=== PATIENT | male | born 1950 | race Caucasian/White ===

== ENCOUNTER 2016-07-29 07:22 | Observation (INO) | payer MEDICAID, OTHER ==
--- NOTE | 2016-07-28 21:10 | PREOPHP ---
DATE OF ADMISSION: 07/29/2016 HISTORY: A 65-year-old male patient seen in the office for evaluation of nasal obstruction to breat emmanuel in 02/2016. There had been prior history of nasal fracture and nasal corrective surgery attemraymond moreno, 12/12/2015. Patient has persistent nasal obstruction to breathing and is now admitted to the [facility] for nasal surgery. ALLERGIES: NONE. MEDICAL CONDITIONS: None. MEDICATIONS: 1. Ibuprofen. 2. Atorvastatin. PRIOR SURGERIES: Herniorrhaphy and right shoulder surgery. CLOTTING DISORDERS: None. HABITS: Alcohol: Social. Tobacco: None. Recreational drugs: None. PHYSICAL EXAMINATION: GENERAL: A well-developed, well-nourished patient, in no acute distress. HEENT: Head normocephalic. No masses or deformities. Ears and tympanic membranes are normal. Nos e: Evidence of old nasal fracture with obstructive septal deviation and turbinate hypertrophy. Rachel pharynx is clear. NECK: No masses or adenopathy. CHEST: Clear to P and A. HEART: Regular sinus rhythm without murmur. ABDOMEN: Soft, bowel sounds normal, no masses or megaly. EXTREMITIES: Full range of motion without deformity. NEUROLOGIC: Physiologic. RECTAL: Not done. IMPRESSION: Old nasal fracture with septal deviation and turbinate hypertrophy. RECOMMENDATIONS: Admit for surgery. Dictated By: TEMITOPE TORRES MD, MM/JOSE Conf#: [id number] DID#: [id number]
[~2016-07-29] VITALS: Ht 167.6 cm; Wt 79.6 kg
[2016-07-29] VITALS (47 sets, daily range): BP systolic 87–151; BP diastolic 49–88; PULSE 62–86; RESP 11–33; Ht 167.6 cm; Wt 79.6 kg
[2016-07-29] MEDS ORDERED: COCAINE 4% 4 ML TOP ONE (11:58)
[2016-07-29] MEDS ORDERED: LIDOCAINE 1%/EPI (MDV) 20 ML INJ ONE (11:58)
[2016-07-29] MEDS ORDERED: PROPOFOL 20 ML ONE (12:03)
[2016-07-29] MEDS ORDERED: FENTAnyl 50 MCG/ML VIAL ONE (12:03)
[2016-07-29] MEDS ORDERED: ROCURONIUM 50 MG INJ ONE (12:03)
[2016-07-29] MEDS ORDERED: LIDOCAINE 2% (SDV) 5 ML INJ ONE (12:03)
[2016-07-29] MEDS ORDERED: SUCCINYLCHOLINE CHLORIDE 100 MG/5 ML SYG IV ONE (12:03)
[2016-07-29] MEDS ORDERED: PHENYLephrine (100 MCG/ML) 5ML SYG ONE (12:22)
[2016-07-29] MEDS ORDERED: BACITRACIN/POLYMYXIN 28.35 GM OINT TOP ONE (12:35)
[2016-07-29] MEDS ORDERED: FENTAnyl 50 MCG/ML VIAL IV PRN (13:00)
[2016-07-29] MEDS ORDERED: HYDROmorphONE (0.2 MG/ML) 10ML SYG IV PRN ×2 (13:00)
[2016-07-29] MEDS ORDERED: DIPHENHYDRAMINE 50 MG INJ IV PRN (13:00)
[2016-07-29] MEDS ORDERED: MEPERIDINE 25 MG INJ IV PRN (13:00)
[2016-07-29] MEDS ORDERED: ALBUTEROL 0.083% (NEB) 2.5 MG/3 ML AMP HHN ONE (13:00)
[2016-07-29] MEDS ORDERED: METOCLOPRAMIDE 10 MG INJ IV PRN (13:00)
[2016-07-29] MEDS ORDERED: ONDANSETRON 4 MG INJ IV PRN ×2 (13:00→18:30)
[2016-07-29] MEDS ORDERED: HYDROCODONE/APAP (7.5/325) TAB PO PRN (13:20)
[2016-07-29] MEDS ORDERED: ACETAMINOPHEN 325 MG TAB PO PRN (18:30)
[2016-07-29] MEDS ORDERED: BISACODYL (EC) 5 MG TAB PO PRN (18:30)
[2016-07-29] MEDS ORDERED: MAGNESIUM HYDROXIDE 30ML CUP PO PRN (18:30)
[2016-07-29] MEDS ORDERED: hydrALAzine 20 MG INJ IV PRN (18:30)
[2016-07-29] MEDS ORDERED: HYDROCODONE/APAP (5/325) TAB PO PRN (18:30)
[2016-07-29] MEDS ORDERED: LORAZEPAM 2 MG INJ IV PRN (18:30)
[2016-07-29] MEDS ORDERED: morphine 2 MG INJ IV PRN (18:30)
[2016-07-29] MEDS ORDERED: NACL 0.9% 3 ML SYG IV SCH (18:30)
--- NOTE | 2016-07-29 19:48 | HP ---
DATE OF ADMISSION: 07/29/2016 TIME OF EVALUATION: 1814 REASON FOR ADMISSION: Chest pain status post elective septoplasty. CONSULTATIONS: Henrry Melgoza MD, Cardiology. HISTORY OF PRESENT ILLNESS: This is a 65-year-old, male patient with past medical history of dyslipidemia, who takes atorvastatin, who was electively brought to [facility] for a septoplasty for a nasal obstruction that has been going on since last year. There was a nasal corrective surgery attempted on 12/12/2015 with details unclear. As per the patient, the nasal fracture happened after an injury in 2015. Eventually, the patient was brought here to [facility] electively by Dr. Alberto and the patient underwent a successful septoplasty. Status post surgery , the patient started complaining of chest pain that was of sudden in onset. The patient rated the chest pain as 4/10. The patient had no associated symptoms including any diaphoresis, nausea or vomiting. The patient denied any family history of heart disease. The patient has a family history of hypertension. The patient verbalized that the patient did not have any chest pain prior to surgery. The patient had a 12-lead EKG done that showed a normal sinus rhythm. The patient's latest blood pressure is 145/78. PAST MEDICAL HISTORY: Dyslipidemia. PAST SURGICAL HISTORY: Right inguinal herniorrhaphy, left shoulder surgery, current nasal septoplasty, and lithotripsy. HOME MEDICATIONS: Atorvastatin, dose unknown. ALLERGIES: NO KNOWN DRUG ALLERGIES. SOCIAL HISTORY: The patient lives at home with his family; currently retired. He denies any use of tobacco, alcohol or illicit drugs. FAMILY HISTORY: Positive for hypertension. REVIEW OF SYSTEMS: Negative, other than what is mentioned in the history of present illness. PHYSICAL EXAMINATION: VITAL SIGNS: Temperature 98.0, pulse rate 76, respiratory rate 15, blood pressure 144/78, oxygen saturation 99% on room air. GENERAL: This is a well-built, well-nourished, male lying in bed, in no apparent distress. HEENT: Head normocephalic and atraumatic. Eyes, anicteric sclerae. Conjunctivae clear. ENT, the patient has a nasal packing. NECK: Supple. No JVD noticed. RESPIRATORY: Bilaterally clear to auscultation. No use of accessory muscles of respiration. CARDIAC: Regular rate and rhythm. S1, S2 heard. ABDOMEN: Soft, nontender, nondistended. Bowel sounds positive in all 4 quadrants. GENITOURINARY: Deferred. EXTREMITIES: No cyanosis, no clubbing, no edema. Peripheral pulses palpable. NEUROLOGIC: Awake, alert and oriented. Cranial nerves are grossly intact. LABORATORY AND DIAGNOSTIC DATA: Troponin less than 0.012. The rest of the labs are not available. IMPRESSION: This is a 65-year-old male patient who came to the [facility] for elective surgery for a nasal fracture, who underwent a successful septoplasty, who started having chest pain post operatively. He will be admitted here in the hospital for further treatment and evaluation ASSESSMENT AND PLAN: 1. Chest pain. To rule out acute coronary syndrome. Serial troponins will be obtained. A 2D echocardiogram will be obtained. The patient will not be started on any aspirin because of the current surgery. Cardiology is already following the patient. 2. Nasal fracture with septal deviation and turbinate hypertrophy. Status post successful septoplasty. Management as per ENT surgeon. 3. Dyslipidemia. A fasting lipid panel will be obtained. The patient will be started on Lipitor. Plan. The patient will be admitted to inpatient telemetry floor under observation status. The patient will be started on deep venous thrombosis prophylaxis with bilateral sequential compression devices. He will be started on gastrointestinal prophylaxis. The patient will be started on a clear liquid diet, and the patient's diet will be advanced as tolerated to a low cholesterol diet. The rest of the patient's management will be based on the clinical course, the results of diagnostic studies and inputs from consultants. Based on the patient's clinical presentation, he most probably requires at least 1-midnight's stay for further management and evaluation of his clinical presentation. The case and management of this patient were fully discussed with Dr. Yepez. DANIELITO YEPEZ MD, AM/JOSE Conf#: [id number] DID#: [id number] ANGELICA
[2016-07-29 20:40] LABS: THYROID STIMULATING HORMONE 1.93 MIU/L (0.465-4.680)
[2016-07-29 20:47] LABS: CHOL/HDL RATIO 11.4 RATIO
[2016-07-29] MEDS ORDERED: ATORVASTATIN 40 MG TAB PO SCH (21:00)
[2016-07-29] MEDS: FAMOTIDINE 20 MG TAB PO SCH (21:09)
--- NOTE | 2016-07-29 21:11 | CONS ---
DATE OF ADMISSION: 07/29/2016 DATE OF CONSULTATION: 07/29/2016 CARDIOLOGY CONSULTATION REASON FOR CONSULTATION: Chest pain. REQUESTING PHYSICIAN: Ignacio De La Cruz MD HISTORY OF PRESENT ILLNESS: Mr. Christie is a 65-year-old male with a history of dyslipidemia who delgadillo d a prior nasal fracture and was having nasal obstruction during breathing and therefore presented t o an outside physician and was scheduled for and brought here for nasal surgery due to septal deviat ion. The patient underwent procedure today and underwent surgery by Dr. De La Cruz, ENT today. Postope ratively, the patient admitted to the PACU and complaints of substernal chest pain, left-sided, desc ribed as a stabbing to a throbbing component with radiation towards the left arm. The patient denie s prior chest pain, myocardial infarction or the cardiac pathology. The patient underwent a 12-lead EKG revealing normal sinus rhythm, rate of 65, normal axis, normal intervals with inferior T-wave f lattening. For this reason I am asked to see this patient in consultation. At this time, the patie nt denies ongoing chest pain, but states he has had recurrent chest pain since the initial episode. PAST MEDICAL HISTORY: As above in HPI. MEDICATIONS PRIOR TO ADMIT: Unknown cholesterol medication. MEDICATIONS CURRENTLY IN THE HOSPITAL: 1. Dilaudid p.r.n. 2. Fentanyl p.r.n. 3. Demerol p.r.n. 4. Benadryl p.r.n. ALLERGIES: NO KNOWN DRUG ALLERGIES. SOCIAL HISTORY: No tobacco, ETOH or illicit drug use. FAMILY HISTORY: No history of sudden cardiac or early CAD. REVIEW OF SYSTEMS: As above in HPI. CONSTITUTIONAL: No fevers, chills. PULMONARY: No current shortness of breath. CARDIOVASCULAR: Intermittent chest pain. GASTROINTESTINAL: No vomiting. GENITOURINARY: No hematuria. MUSCULOSKELETAL: Degenerative joint disease, primarily involving knees. PSYCHIATRIC: No documented psych history. NEUROLOGIC: No documented history of CVA. PHYSICAL EXAMINATION: VITAL SIGNS: Temperature 98, blood pressure most recently 145/78, pulse 76, respiratory rate 15, sa tting 99%. GENERAL: The patient is alert, awake, complaining of intermittent chest pain. NECK: JVP approximately 8 cm water. CHEST: Fair air movement throughout. HEART: Regular rate and rhythm. Normal S1 and S2, I/ systolic murmur, nondisplaced PMI. ABDOMEN: Positive bowel sounds, soft. EXTREMITIES: No edema, 1+ pulses, bilateral posterior tibial. Nose covered by a dressing. LABORATORY DATA: From today, troponin negative x1. IMAGING STUDIES: No further imaging studies for my review at this time. IMPRESSION: 1. Chest pain, assess for acute coronary syndrome. 2. Abnormal electrocardiogram with inferior T-wave flattening. Assess for acute coronary syndrome. 3. Hypertension, borderline. 4. History of dyslipidemia. 5. Postoperative day #0 status post nasal surgery for deviated septum. RECOMMENDATIONS: 1. At this time, would admit the patient to telemetry monitoring to follow rhythm and rate control closely. 2. Would give the patient sublingual nitroglycerin for recurrent episodes of chest pain. We will i nitiate the patient on low dose beta michelle. 3. Check a 2D echo to further assess the patient's ejection fraction, wall motion and any major keron ve abnormalities. 4. Check serial EKGs to assess for any significant ongoing changes, an EKG in the morning, EKG for any complaints of chest pain or change in rhythm. 5. Check a fasting lipid panel for general risk stratification and adjust the patient's lipid-lower ing medication as necessary. 6. Complete the patient's rule out for myocardial infarction. Thank you for allowing me to take part in the care of this patient. I will continue to follow along very closely with you with further recommendations to be made as the patient progresses through his inpatient hospital clinical course. Dictated By: ZENAIDA RIDLEY/JOSE Conf#: [id number] DID#: [id number] CC: KECIA ANGLIN MD; IGNACIO DE LA CRUZ MD;*End*
[2016-07-30] VITALS (9 sets, daily range): BP systolic 94–144; BP diastolic 53–66; PULSE 75–82; RESP 18–20
[2016-07-30 06:50] LABS: ADD SCAN DIFF NO
[2016-07-30 07:02] LABS: BASOPHIL # 0.1 10^3/ul (0.0-0.1); BASOPHILS % 0.6 % (0.0-2.0); EOSINOPHILS # 0.3 10^3/ul (0.0-0.5); HEMATOCRIT 39.8 % (42.0-52.0); HEMOGLOBIN 13.4 g/dl (14.0-18.0); LYMPHOCYTES # 1.9 10^3/ul (0.8-2.9); LYMPHOCYTES % 17.4 % (15.0-51.0); MEAN CORPUSCULAR HEMOGLOBIN 30.7 pg (29.0-33.0); MEAN CORPUSCULAR HGB CONC 33.7 g/dl (32.0-37.0); MEAN CORPUSCULAR VOLUME 91.3 fl (82.0-101.0); MEAN PLATELET VOLUME 10.9 fl (7.4-10.4); MONOCYTE # 0.9 10^3/ul (0.3-0.9); MONOCYTES % 7.9 % (0.0-11.0); NEUTROPHIL # 7.6 10^3/ul (1.6-7.5); NEUTROPHILS % 70.5 % (39.0-77.0); PLATELET COUNT 209 10^3/UL (140-415); RED BLOOD COUNT 4.36 10^6/ul (4.70-6.10); RED CELL DISTRIBUTION WIDTH 13.2 % (11.5-14.5); WHITE BLOOD COUNT 10.8 10^3/ul (4.8-10.8)
[2016-07-30 07:26] LABS: ALBUMIN 3.6 g/dl (3.3-4.9); POTASSIUM 4.2 mmol/L (3.5-5.1)
[2016-07-30 07:28] LABS: CREATININE 0.91 mg/dl (0.61-1.24)
[2016-07-30 07:29] LABS: BILIRUBIN,INDIRECT 0.8 mg/dl (0-1.1); BILIRUBIN,TOTAL 0.8 mg/dl (0.2-1.3); TOTAL PROTEIN 6.7 g/dl (6.1-8.1)
[2016-07-30 07:30] LABS: CALCIUM 8.7 mg/dl (8.4-10.2)
[2016-07-30 07:36] LABS: ALBUMIN/GLOBULIN RATIO 1.16
[2016-07-30 07:57] LABS: MAGNESIUM 1.8 mg/dl (1.7-2.5); PHOSPHORUS 3.8 mg/dl (2.5-4.9)
--- NOTE | 2016-07-30 08:00 | CONS ---
Date/Time of Note Date/Time of Note DATE: 07/30/16 TIME: 07:44 Consultation Date/Type/Reason Admit Date/Time July 29, 2016 at 18:05 Initial Consult Date 06/30/16 Type of Consultation: Anesthesiology Reason for Consultation Follow up 24 HR Interval Summary Free Text/Dictation Pt seen and examined at bedside is POD#1 s/p nasal fracture repair under GETA. The pt experienced some chest pain with radiation during his PACU stay and was admitted to r/o ACS. Cardiology on board at this time. He currently denies any CP/SOB and states he feels well. Will f/u with patient. Constitutional: improved, no complaints Exam/Review of Systems Vital Signs Vitals Vital Signs Date Time Temp Pulse Resp B/P Pulse Ox O2 Delivery O2 Flow Rate FiO2 07/30/16 07:37 98.0 75 18 99/59 98 07/29/16 16:47 Room Air Intake and Output 07/29/16 07/29/16 07/30/16 14:59 22:59 06:59 Intake Total 60 ml Balance 60 ml Results Result Diagram: 07/30/16 0542 07/30/16 0542 Results 24 hrs Laboratory Tests Test 07/29/16 14:02 07/29/16 19:35 07/30/16 00:38 07/30/16 05:42 Troponin I < 0.012 < 0.012 < 0.012 Hemoglobin A1c 5.7 Triglycerides Level 646 H Cholesterol Level 366 H LDL Cholesterol, Calculated 205 HDL Cholesterol 32 Cholesterol/HDL Ratio 11.4 Thyroid Stimulating Hormone (TSH) 1.930 Free Thyroxine 0.79 White Blood Count 10.8 Red Blood Count 4.36 L Hemoglobin 13.4 L Hematocrit 39.8 L Mean Corpuscular Volume 91.3 Mean Corpuscular Hemoglobin 30.7 Mean Corpuscular Hemoglobin Concent 33.7 Red Cell Distribution Width 13.2 Platelet Count 209 Mean Platelet Volume 10.9 H Neutrophils % 70.5 Lymphocytes % 17.4 Monocytes % 7.9 Eosinophils % 3.0 Basophils % 0.6 Nucleated Red Blood Cells % 0.0 Neutrophils # 7.6 H Lymphocytes # 1.9 Monocytes # 0.9 Eosinophils # 0.3 Basophils # 0.1 Nucleated Red Blood Cells # 0.0 Sodium Level 139 Potassium Level 4.2 Chloride Level 103 Carbon Dioxide Level 26 Anion Gap 14 Blood Urea Nitrogen 16 Creatinine 0.91 Glucose Level 110 Calcium Level 8.7 Total Bilirubin 0.8 Direct Bilirubin 0.00 Indirect Bilirubin 0.8 Aspartate Amino Transf (AST/SGOT) 40 Alanine Aminotransferase (ALT/SGPT) 35 Alkaline Phosphatase 106 Total Protein 6.7 Albumin 3.6 Globulin 3.10 Albumin/Globulin Ratio 1.16 Medications Medications Current Medications Lorazepam (Ativan) 0.5 mg Q6H PRN IV ANXIETY; Start 07/29/16 at 18:30 Ondansetron HCl (Zofran Inj) 4 mg Q6H PRN IV NAUSEA AND/OR VOMITING; Start 07/29 at 18:30 Acetaminophen (Tylenol Tab) 650 mg Q6H PRN PO PAIN LEVEL 1-3 OR FEVER; Start at 18:30 Acetaminophen/ Hydrocodone Bitart ([place] (5/325)) 1 tab Q6H PRN PO PAIN LEVEL 4 -6; Start 07/29/16 at 18:30 Morphine Sulfate (morphine) 2 mg Q4H PRN IV PAIN LEVEL 7-10 Last administered on 07/29/16 22:13; Admin Dose 2 MG; Start 07/29/16 at 18:30 Magnesium Hydroxide (Milk Of Mag) 30 ml DAILY PRN PO CONSTIPATION; Start at 18:30 Bisacodyl (Dulcolax) 5 mg DAILY PRN PO CONSTIPATION; Start 07/29/16 at 18:30 Famotidine (Pepcid) 20 mg Q12 PO Last administered on 07/29/16 21:09; Admin Dose 20 MG; Start 07/29/16 at 21:00 Hydralazine HCl (Apresoline) 10 mg Q6H PRN IV SbP>160; Start 07/29/16 at 18:30 Atorvastatin Calcium (Lipitor) 40 mg HS PO Last administered on 07/29/16 21:09 ; Admin Dose 40 MG; Start 07/29/16 at 21:00 RL JULIAN July 30, 2016 08:00
[2016-07-30] MEDS: FAMOTIDINE 20 MG TAB PO SCH (09:48)
--- NOTE | 2016-07-30 10:55 | OPR ---
DATE OF OPERATION: 07/29/2016 PREOPERATIVE DIAGNOSIS: Septal deviation with turbinate hypertrophy. POSTOPERATIVE DIAGNOSIS: Septal deviation with turbinate hypertrophy. PROCEDURE PERFORMED: Septoplasty with turbinate reduction. OPERATION: Patient brought to the operating room under parenteral sedation, general oral endotrache al anesthesia with the patient in the supine position, sterile sheets and drapes were applied. The nose was anesthetized topically with 5% cottonoid cocaine and Xylocaine 1%, epinephrine 1:100,000. There had been prior nasal surgery and considerable obstructive left septal deviation was noted with inferior turbinate bone hypertrophy. The inferior turbinate bones were lightly crushed and outfrac tured. A left septal hemitransfixion incision was made. Septal flaps were elevated bilaterally, ex posing the quadrilateral cartilage and bony septum. Considerable scarring was noted and sharp disse ction was required. The quadrilateral was totally obstructed on the left side. Portions of the doroteo drilateral were mobilized with scissors and removed with forceps. The remaining cartilage was verti mike through and through cut to correct cartilaginous obstruction. The bony septum posteriorly was obstructed on the left and was mobilized through subperiosteal tunnels and portions removed with fo rceps. The septal compartment was then suctioned and the incision closed with interrupted 4-0 chrom ic. The nose was packed with half-inch Adaptic, bacitracin gauze. A drip pad was applied and the p rocedure terminated. Patient awakened and extubated in the operating room and returned to recovery in excellent condition. ESTIMATED BLOOD LOSS: 5 to 10 mL. COMPLICATIONS: No complications. Dictated By: NED CARRASCO/JOSE Conf#: [id number] DID#: [id number]
--- NOTE | 2016-07-30 12:25 | PDOCDIS ---
Discharge Instructions CONDITION Patient Condition: Good HOME CARE INSTRUCTIONS: Diet Instructions: Low Fat /Cholesterol OTHER ORDERS: Other Orders: 1. Take a low-cholesterol diet. 2. Take pain medications as needed. Continue Lipitor 80 mg. Start taking fish oil and fenofibrate. 3. Follow-up with your primary care physician 1 week. 4. Follow-up with ENT as scheduled. 5. Activity restrictions as per ENT. DANIELITO RIVERA NP July 30, 2016 12:25
[2016-07-30] MEDS ORDERED: FENO145T19 PO (12:26)
[2016-07-30] MEDS ORDERED: HYDR-3498 PO (12:26)
[2016-07-30] MEDS ORDERED: ATOR80TA75 PO (12:26)
[2016-07-30] MEDS ORDERED: OMEG1CAP55 PO (12:26)
--- NOTE | 2016-07-30 14:57 | CONS ---
Date/Time of Note Date/Time of Note DATE: 07/30/16 TIME: 14:53 Assessment/Plan Assessment/Plan Chief Complaint/Hosp Course IMPRESSION: 1. Chest pain, assess for acute coronary syndrome.-negative troponin x 3/NL EF by echo 2. Abnormal electrocardiogram with inferior T-wave flattening. Assess for acute coronary syndrome. 3. Hypertension, borderline. 4. History of dyslipidemia. 5. Postoperative day #1 status post nasal surgery for deviated septum. Recc: -Continue statin/fish oil -Follow BP clsoely -d/c planning with outpatient f/u 2 weeks for stress testing Problems: Consultation Date/Type/Reason Admit Date/Time July 29, 2016 at 18:05 Initial Consult Date 07/29/2016 Type of Consultation: cardiology Reason for Consultation Chest pain Referring Provider: KECIA ANGLIN Exam/Review of Systems Vital Signs Vitals Vital Signs Date Time Temp Pulse Resp B/P Pulse Ox O2 Delivery O2 Flow Rate FiO2 07/30/16 12:46 77 07/30/16 12:30 98.0 18 144/66 96 07/29/16 16:47 Room Air Intake and Output 07/29/16 07/29/16 07/30/16 15:00 23:00 07:00 Intake Total 60 ml Balance 60 ml Exam Review of Systems: CONSTITUTIONAL: No fevers, chills. PULMONARY: No sob CARDIOVASCULAR: No chest pain/palpitations GASTROINTESTINAL: No nausea/vomiting. GENITOURINARY: No hematuria/dysuria. MUSCULOSKELETAL: No myagias/arthalgias. PSYCHIATRIC: The patient denies depression. NEUROLOGIC: No weakness Constitutional: alert Psych: no complaints Head: normocephalic ENMT: other (nose covered by dressoing) Neck: jvd (8 cm water), supple Respiratory: diminished breath sounds Cardiovascular: regular rate and rhythm Gastrointestinal: non-tender, soft Musculoskeletal: muscle tone (normal) Extremities: edema (none) Neurological: other (NO focal deficits) Results Result Diagram: 07/30/16 0542 07/30/16 0542 Results 24 hrs Laboratory Tests Test 07/29/16 19:35 07/30/16 00:38 07/30/16 05:42 Hemoglobin A1c 5.7 Troponin I < 0.012 < 0.012 < 0.012 Triglycerides Level 646 H 598 H Cholesterol Level 366 H 350 H LDL Cholesterol, Calculated 205 201 HDL Cholesterol 32 29 L Cholesterol/HDL Ratio 11.4 12.0 Thyroid Stimulating Hormone (TSH) 1.930 Free Thyroxine 0.79 White Blood Count 10.8 Red Blood Count 4.36 L Hemoglobin 13.4 L Hematocrit 39.8 L Mean Corpuscular Volume 91.3 Mean Corpuscular Hemoglobin 30.7 Mean Corpuscular Hemoglobin Concent 33.7 Red Cell Distribution Width 13.2 Platelet Count 209 Mean Platelet Volume 10.9 H Neutrophils % 70.5 Lymphocytes % 17.4 Monocytes % 7.9 Eosinophils % 3.0 Basophils % 0.6 Nucleated Red Blood Cells % 0.0 Neutrophils # 7.6 H Lymphocytes # 1.9 Monocytes # 0.9 Eosinophils # 0.3 Basophils # 0.1 Nucleated Red Blood Cells # 0.0 Sodium Level 139 Potassium Level 4.2 Chloride Level 103 Carbon Dioxide Level 26 Anion Gap 14 Blood Urea Nitrogen 16 Creatinine 0.91 Glucose Level 110 Calcium Level 8.7 Phosphorus Level 3.8 Magnesium Level 1.8 Total Bilirubin 0.8 Direct Bilirubin 0.00 Indirect Bilirubin 0.8 Aspartate Amino Transf (AST/SGOT) 40 Alanine Aminotransferase (ALT/SGPT) 35 Alkaline Phosphatase 106 Total Protein 6.7 Albumin 3.6 Globulin 3.10 Albumin/Globulin Ratio 1.16 Medications Medications Current Medications Lorazepam (Ativan) 0.5 mg Q6H PRN IV ANXIETY; Start 07/29/16 at 18:30 Ondansetron HCl (Zofran Inj) 4 mg Q6H PRN IV NAUSEA AND/OR VOMITING; Start 07/29 at 18:30 Acetaminophen (Tylenol Tab) 650 mg Q6H PRN PO PAIN LEVEL 1-3 OR FEVER; Start at 18:30 Acetaminophen/ Hydrocodone Bitart ([place] (5/325)) 1 tab Q6H PRN PO PAIN LEVEL 4 -6; Start 07/29/16 at 18:30 Morphine Sulfate (morphine) 2 mg Q4H PRN IV PAIN LEVEL 7-10 Last administered on 07/29/16t 22:13; Admin Dose 2 MG; Start 07/29/16 at 18:30 Magnesium Hydroxide (Milk Of Mag) 30 ml DAILY PRN PO CONSTIPATION; Start at 18:30 Bisacodyl (Dulcolax) 5 mg DAILY PRN PO CONSTIPATION; Start 07/29/16 at 18:30 Famotidine (Pepcid) 20 mg Q12 PO Last administered on 07/30/16t 09:48; Admin Dose 20 MG; Start 07/29/16 at 21:00 Hydralazine HCl (Apresoline) 10 mg Q6H PRN IV SbP>160; Start 07/29/16 at 18:30 Atorvastatin Calcium (Lipitor) 80 mg HS PO ; Start 07/30/16 at 21:00 Fenofibrate (Tricor) 145 mg DAILY PO ; Start 07/31/16 at 09:00 Fish Oil (Fish Oil) 1,000 mg BID PO ; Start 07/30/16 at 21:00 ZENAIDA SEARS July 30, 2016 14:57
--- NOTE | 2016-07-30 15:00 | RADRPT ---
Echocardiogram Report Patient Name: IVAN CARNEY Gender: Male Date: 1950 Study Date: 30-Jul-2016 Improvement Rn: Location: [id number] Ref. Physician: ZENAIDA MELGOZA Quality: Adequate Procedures: Transthoracic echocardiogram with complete 2D, M-Mode, and doppler examination. Indications: Chest Pain. 2D/M Mode Doppler Measurement Value Normal Ranges Measurement Value Normal Ranges LVIDd 2D 3.8 3.5 - 5.6 cm AV Peak Manjeet 1.4 m/sec LVIDs 2D 2.5 2.1 - 4.1 cm AV Peak PG 8.0 mmHg FS 2D 35.8 % LVOT Peak Manjeet 1.0 m/sec LVPWd 2D 1.0 0.6 - 1.1 cm LVOT Peak PG 4.0 mmHg IVSd 2D 0.6 0.6 - 1.1 cm MV E Peak Manjeet 0.5 m/sec IVS/LVPW 2D 0.6 MV A Peak Manjeet 0.7 m/sec AoR Diam 2D 2.2 2.0 - 3.7 cm MV E/A 0.8 LA/Ao 2D 2 0 - 1 MV Decel Time 194 msec EDV 2D 56.2 cm3 MV E/A 0.8 ESV 2D 14.9 cm3 TR Peak Manjeet 2.5 m/sec LA Dimen 2D 3.4 2.3 - 4.0 cm TR Peak PG 26.0 mmHg RVSP 29.0 mmHg Findings Left Ventricle: Normal left ventricular systolic function. Normal left ventricular cavity size. Normal left ventricular wall thickness. Ejection fraction is visually estimated at 60 %. Tissue Doppler/Mitral Doppler indices are consistent with impaired relaxation (Stage I diastolic dysfunction). Right Ventricle: Normal right ventricular size. Normal right ventricular systolic function. Left Atrium: The left atrium is normal in size. Right Atrium: The right atrium is normal in size. Atrial Septum: Normal atrial septum. Ventricular septum: Normal/intact ventricular septum. Mitral Valve: Normal appearance of the mitral valve. Normal appearance and function of the mitral valve with trace physiologic regurgitation. Aortic Valve: Normal appearance of the aortic valve. No significant aortic stenosis or insufficiency. Tricuspid Valve: Normal appearance of the tricuspid valve. Estimated peak PA systolic pressure 29 mmHg. There is trace tricuspid regurgitation. Pulmonic Valve: Normal pulmonic valve appearance. There is trace pulmonic regurgitation. Pericardium: There is an anterior echo free space consistent with epicardial fat pad. Aorta: Normal aortic root. IVC: Normal size and normal respiratory collapse consistent with normal right atrial pressure. Conclusions Normal left ventricular systolic function. Normal left ventricular cavity size. Normal left ventricular wall thickness. Ejection fraction is visually estimated at 60 %. Tissue Doppler/Mitral Doppler indices are consistent with impaired relaxation (Stage I diastolic dysfunction). Normal appearance of the mitral valve. Normal appearance and function of the mitral valve with trace physiologic regurgitation. Normal appearance of the tricuspid valve. Estimated peak PA systolic pressure 29 mmHg. There is trace tricuspid regurgitation. Normal pulmonic valve appearance. There is trace pulmonic regurgitation. Electronically Signed By: Zenaida Melgoza 30-Jul-2016 15:00:31 -0700 Patient Name: IVAN CARNEY Study Date: 30-Jul-2016 [id number]
--- NOTE | 2016-07-30 16:40 | RADRPT ---
Vent Rate: 65 bpm RR Interval: 0 msec [place] Interval: 170 msec QRS Duration: 84 msec QT Interval: 404 msec QTC Interval: 420 msec P-R-T [place]: 38 - 28 - 58 degrees Normal sinus rhythm Normal ECG Electronically Signed By: Henrry Melgoza [id number]
--- NOTE | 2016-07-30 16:41 | RADRPT ---
Vent Rate: 74 bpm RR Interval: 0 msec [place] Interval: 168 msec QRS Duration: 82 msec QT Interval: 382 msec QTC Interval: 424 msec P-R-T [place]: 32 - 26 - 53 degrees Normal sinus rhythm Normal ECG Electronically Signed By: Henrry Melgoza [id number]
--- NOTE | 2016-07-30 17:26 | DS ---
DATE OF ADMISSION: 07/29/2016 DATE OF DISCHARGE: 07/30/2016 FINAL DIAGNOSES: 1. Chest pain. Acute coronary syndrome ruled out. 2. Nasal fracture with nasal septum deviation and turbinate hypertrophy. Status post septoplasty. 3. Dyslipidemia. CONSULTATIONS: Dr. Henrry Melgoza, cardiology. HOSPITAL COURSE: This is a 65-year-old male patient with past medical history of dyslipidemia who takes Atorvastatin, who was electively brought to [facility] for a septoplasty for a nasal obstruction that has been going on since last year. There was a nasal corrective surgery attempted on with details unclear. As for the patient, the nasal fracture happened after an incident in 2016. Originally, the patient was brought to [facility] electively by Dr. Alberto and the patient underwent a successful septoplasty. Status post surgery, the patient started complaining of chest pain that was sudden in onset. The patient rated the chest pain as 4/10. The patient had no associated symptoms including any diaphoresis, nausea or vomiting. The patient denied any family history of heart disease. The patient verbalized that he did not have any chest pain prior to surgery. The patient had a 12-lead EKG done that showed normal sinus rhythm. The patient was admitted to inpatient telemetry floor. Serial troponins were ordered. A 2D echocardiogram was ordered. Cardiology consult was obtained. The patient's troponins x4 were negative. The patient's 2D echocardiogram showed preserved left ventricular ejection fraction with stage I diastolic dysfunction. The patient was cleared by Cardiology to be discharged home. The patient has history of dyslipidemia and the patient's fasting lipid panel showed significant dyslipidemia with underlying hypertriglyceridemia. The patient's hemoglobin A1c was 5.7. The patient's blood pressure was slightly elevated at some point of time, but was later controlled during the hospital stay. The patient was then maintained on pain medications for his surgical pain. The patient was seen by a registered dietitian during the hospital course. The patient had a stable hospital course. The patient is able to be discharged home. DISCHARGE DISPOSITION AND PLAN: The patient will be discharged home today. He was instructed to follow a low cholesterol diet. He was instructed to take pain medications as needed and to continue Lipitor 80 mg and also to start taking fish oil and fenofibrate. He was instructed to follow up with his primary care physician in 1 week and to arrange for cardiology followup as outpatient. The patient was instructed to follow up with ENT as scheduled. Activity restrictions as per ENT. The patient verbalized understanding of his discharge instructions. CONDITION AT DISCHARGE: Stable. DISCHARGE PHYSICAL EXAMINATION: GENERAL: This is a well-built, well-nourished, male lying in bed, in no apparent distress. HEENT: Head normocephalic and atraumatic. Eyes, anicteric sclerae. Conjunctivae clear. ENT, the patient has a nasal packing. NECK: Supple. No JVD noticed. RESPIRATORY: Bilaterally clear to auscultation. No use of accessory muscles of respiration. CARDIAC: Regular rate and rhythm. S1, S2 heard. ABDOMEN: Soft, nontender, nondistended. Bowel sounds positive in all 4 quadrants. GENITOURINARY: Deferred. EXTREMITIES: No cyanosis, no clubbing, no edema. Peripheral pulses palpable. NEUROLOGIC: Awake, alert and oriented. Cranial nerves are grossly intact. DISCHARGE MEDICATIONS: 1. Atorvastatin 80 mg p.o. at bedtime. 2. Fenofibrate 145 mg p.o. daily. 3. [place] 3 fatty acids 1000 mg p.o. b.i.d. . 4. [place] 5/325 one tablet p.o. q. 6 hours p.r.n. pain (#30 tablets). PERTINENT LABORATORY DATA AND PROCEDURES: 1. 2D echocardiogram. Ejection fraction of 60%. Stage I diastolic dysfunction. Estimated peak PA systolic pressure of 29 mmHg. 2. Septoplasty with turbinate reduction on 07/29/2016. 3. CBC: WBC 10.8, hemoglobin 13.4, hematocrit 39.8, platelets are 239. 4. Sodium 139, potassium 4.2, chloride 103, carbon dioxide 26, anion gap 14, BUN 16, creatinine 0.91, glucose 110, calcium 8.7. 5. Hemoglobin A1c 5.7%, 6. Fasting lipid panel: Triglycerides 598, total cholesterol 350, LDL 201, HDL 29. 7. 12-lead EKG: Normal sinus rhythm. At this time, we would like to thank all the consultants for seeing the patient and providing clinical recommendations. The case and management of this patient was fully discussed with Dr. Yepez. Approximately 35 minutes was spent on coordinating the discharge on this patient. DANIELITO YEPEZ MD, AM/JOSE Conf#: [id number] [facility]#: [id number] MTDD
[2016-07-30] MEDS ORDERED: ATORVASTATIN 80 MG TAB PO SCH (21:00)
[2016-07-30] MEDS ORDERED: FISH OIL 1,000 MG CAP PO SCH (21:00)
[2016-07-31] MEDS ORDERED: FENOFIBRATE 145 MG TAB PO SCH (09:00)
== END 2016-07-30 16:20 | disposition home or self-care (01) ==
LOC: SDS 07:22 → TEL 18:05 → SDS 18:05
PROVIDERS: ADMIT Otolaryngology Otolaryngology/Facial Plastic Surgery; ATTEND Otolaryngology Otolaryngology/Facial Plastic Surgery
DX: J34.2 Deviated nasal septum (principal); J34.3 Hypertrophy of nasal turbinates; E78.5 Hyperlipidemia, unspecified; R07.9 Chest pain, unspecified; R94.31 Abnormal electrocardiogram [ECG] [EKG]; Z82.49 Family history of ischemic heart disease and other diseases of the circulatory system
CPT/HCPCS: 30520; 30930; 80053; 80061; 83036; 83735; 84100; 84439; 84443; 84484; 85025; 88300; 93005; 93306; 96374; J0330; J1170; J2270; J2370; J3010; Z7500; Z7512; Z7610; G0378

== ENCOUNTER 2017-05-06 11:26 | Emergency (ER) | END 2017-05-06 17:03 | disposition home or self-care (01) ==